=== PATIENT | female | born 1960 | race Caucasian/White ===

== ENCOUNTER 2024-03-11 09:15 | Emergency (ER) | payer OTHER ==
[~2024-03-11] VITALS: Ht 152.4 cm; Wt 61.4 kg
[2024-03-11 09:24] VITALS: TEMP 97.7
[2024-03-11] MEDS ORDERED: Morphine 4 MG/ML VIAL IV ONE (10:00)
[2024-03-11] MEDS ORDERED: Ondansetron 4 MG/2 ML VIAL IV PRN (10:00)
[2024-03-11] MEDS ORDERED: NS 1,000 ML IV ONE (10:00)
[2024-03-11 10:08] LABS: COLLECTION METHOD CLEAN CATCH
[2024-03-11 10:21] LABS: BASO % 0.3 % (0.0-2.0); EOS % 0.1 % (0.0-4.0); GRAN # 7.7 K/mm3 (1.4-6.5); GRAN % 87.7 % (42.2-75.2); HEMATOCRIT 44.6 % (37.0-47.0); HEMOGLOBIN 15.3 g/dl (12.5-16.0); LYMPH # 0.9 K/mm3 (1.2-3.4); LYMPH % 10.7 % (20.0-51.0); MEAN CELL VOLUME 88 fl (80.0-100.0); MEAN CORPUSCULAR HEMOGLOBIN 30 pg (27-31); MEAN CORPUSCULAR HGB CONC 34 g/dl (33.0-37.0); MEAN PLATELET VOLUME 10.6 fl (7.4-10.4); MONO # 0.1 K/mm3 (0.1-0.6); MONO % 0.9 % (1.7-9.3); PLATELET COUNT 225 K/mm3 (130-400); RED BLOOD COUNT 5.05 M/mm3 (4.10-5.30); REDCELL DISTRIBUTION WIDTH-CV 11.8 % (11.5-14.5)
[2024-03-11] MEDS ORDERED: Ketorolac 15 MG/ML VIAL IV ONE (10:30)
[2024-03-11 10:36] LABS: URINE APPEARANCE CLEAR (CLEAR/HAZY); URINE COLOR YELLOW (YELLOW); URINE GLUCOSE Negative (NEGATIVE); URINE PROTEIN(semi-quant) Negative (NEGATIVE)
[2024-03-11 10:37] LABS: URINE BLOOD Negative (NEGATIVE); URINE KETONE Negative (NEGATIVE); URINE NITRATE Negative (NEGATIVE); URINE UROBILINOGEN 0.2 E.U/dL (0.2-1.0)
[2024-03-11 11:01] LABS: BILIRUBIN,TOTAL 0.3 mg/dL (0.2-1.2); CALCIUM 9.8 mg/dL (8.4-10.2); CREATININE, serum 0.78 mg/dL (0.57-1.11); POTASSIUM 4.2 mEq/L (3.5-4.5); TOTAL PROTEIN 7.2 g/dl (6.2-8.1)
[2024-03-11] MEDS ORDERED: Iohexol 300 - 100 ML VIAL IV ONE (11:05)
[2024-03-11] MEDS ORDERED: NS 100 ML IV SCH (11:05)
[2024-03-11] MEDS ORDERED: MIRALAX238G PO (11:52)
[2024-03-11] MEDS ORDERED: FLEXERIL 1010 MG/TAB PO (11:52)
[2024-03-11] MEDS ORDERED: MOTRIN 800800 MG/TAB PO (11:52)
[2024-03-11 12:05] VITALS: BP 139/86; PULSE 93
[2024-03-12] MEDS ORDERED: PREDNISONE20 MG PO (08:46)
== END 2024-03-11 12:05 | disposition home or self-care (01) ==
LOC: COL.ER 09:15
PROVIDERS: Personal Emergency Response Attendant
DX: M54.50 Low back pain, unspecified (principal); K59.00 Constipation, unspecified; Z87.442 Personal history of urinary calculi
CPT/HCPCS: J1885; J7030; Q9967